=== PATIENT | female | born 1955 | race Caucasian/White ===

== ENCOUNTER 2016-11-15 06:40 | Inpatient (IN) | payer BC ==
[2016-11-12 09:25] LABS: BILIRUBIN,URINE NEGATIVE (NEGATIVE); BLOOD, URINE NEGATIVE (NEGATIVE); CLARITY/URINE CLEAR (CLEAR); COLOR,URINE YELLOW (YELLOW); GLUCOSE,URINE NEGATIVE (NEGATIVE); KETONES,URINE NEGATIVE (NEGATIVE); LEUKOCYTE ESTERASE ,URINE NEGATIVE (NEGATIVE); NITRITE, URINE NEGATIVE (NEGATIVE); PROTEIN URINE NEGATIVE (NEGATIVE); UROBILINOGEN,URINE 0.2 (0.2-1.0)
[2016-11-12 09:32] LABS: CALCIUM 9.6 mg/dL (8.4-11.0); CREATININE 0.82 mg/dL (0.55-1.30); POTASSIUM 4.2 mmol/L (3.5-5.1)
[2016-11-12 09:35] LABS: PROTHROMBIN TIME 10.4 SECS (9.5-12.5)
[2016-11-12 09:37] LABS: BASOPHILS # (AUTO) 0.1 K/uL (0.0-0.2); BASOPHILS % (AUTO) 1.1 % (0.0-2.0); EOSINOPHILS # (AUTO) 0.1 K/uL (0.0-0.4); EOSINOPHILS % (AUTO) 1.1 % (0.0-4.0); HEMATOCRIT 44.5 % (36-48); HEMOGLOBIN 15.1 g/dL (12.0-16.0); LYMPHOCYTES # (AUTO) 1.6 K/uL (1.0-5.5); LYMPHOCYTES % (AUTO) 32.6 % (20.5-51.5); MEAN CORPUSCULAR HEMOGLOBIN 30 pg (27-31); MEAN CORPUSCULAR HGB CONC 34 % (32-36); MEAN CORPUSCULAR VOLUME 89 fL (79.0-98.0); MONOCYTES # (AUTO) 0.3 K/uL (0.0-1.0); MONOCYTES % (AUTO) 6.6 % (1.7-9.3); NEUTROPHILS # (AUTO) 2.8 K/uL (1.8-7.7); NEUTROPHILS % (AUTO) 58.6 % (40.0-70.0); PLATELET COUNT (AUTO) 258 K/uL (130-430); RED CELL DISTRIBUTION WIDTH 12.1 % (9.0-15.0); WHITE BLOOD COUNT (AUTO) 4.9 K/uL (4.8-10.8)
[~2016-11-15] VITALS: Ht 162.6 cm; Wt 103.4 kg
[~2016-11-15 06:40] MED LIST: AMLO2.5T2 PO; CARB-61 PO; ENTA200T2 PO; RASA1TAB PO; TRIH2TAB3 PO
[2016-11-15] MEDS ORDERED: CEFAZOLIN SOD 2 GM in D5W 50 ML IV ONE (07:00)
[2016-11-15] MEDS ORDERED: POLYMYXIN 500,000/BACIT.10,000 UNITS in NS IRR 1 L IR ONE (07:18)
[2016-11-15] MEDS ORDERED: AMIL5TAB9 PO (07:55)
[2016-11-15] MEDS ORDERED: CARB1TAB12 PO (07:55)
[2016-11-15] MEDS ORDERED: COM200 PO (07:55)
[2016-11-15] MEDS ORDERED: TRIH2TAB3 PO (07:55)
[2016-11-15] MEDS ORDERED: RASA1TAB PO (07:55)
[2016-11-15] MEDS ORDERED: LR 1,000 ML IV SCH (09:02)
[2016-11-15] MEDS ORDERED: HYDROmorphone 2 MG/ML VIAL IVP PRN (09:15)
[2016-11-15] MEDS ORDERED: METOCLOPRAMIDE HCL 10 MG/2 ML VIAL IVP PRN (09:15)
[2016-11-15] MEDS ORDERED: HYDROmorphone 1 MG INJ. 1 MG/ML AMPUL IVP PRN ×2 (09:15)
[2016-11-15] MEDS ORDERED: PROMETHAZINE HCL 25 MG/ML AMP IVP PRN (10:30)
[2016-11-15] MEDS ORDERED: DIPHENHYDRAMINE HCL 25 MG CAPSULE PO PRN (10:30)
[2016-11-15] MEDS ORDERED: ONDANSETRON HCL 4 MG/2 ML VIAL IVP PRN (10:30)
[2016-11-15] MEDS ORDERED: SENNOSIDES 8.6 MG TABLET PO PRN (10:30)
[2016-11-15] MEDS ORDERED: ACETAMINOPHEN 325 MG TABLET PO PRN (10:30)
[2016-11-15] MEDS ORDERED: HYDROmorphone 2 MG/ML VIAL ONE (10:44)
[2016-11-15 12:00] VITALS: BP_SYST 148
[2016-11-15] MEDS ORDERED: NALOXONE HCL 0.4 MG/ML AMP (NARCAN) IVP PRN (12:15)
[2016-11-15] MEDS ORDERED: HYDROMORPHONE PCA 10 mg/50 mL IV PRN (12:15)
--- NOTE | 2016-11-15 12:45 | NUR ---
INITIAL NOTE Patient received, drowsy but easily aroused. Patient oriented x4. VSS. Patient stated 4/10 knee pain. RETAIL ZONE SPECIALIST Diluadid effective for pain management. Educated patient on pain management and relaxation techniques, patient verbalized understanding. Respirations even and unlabored, patient receiving oxygen via NC at this time. hospital monitor in place, rhythm noted. IV site patent and intact. Abdomen soft and non distended. Rebolledo draining to gravity, clear yellow urine noted. Right knee dressing CDI, polar care to right knee, hemovac noted. Bilateral pedal pulses strong and equal. SCD applied to left lower extremity. Plan of care discussed, patient verbalized understanding. No further needs at this time. Will continue to monitor. Safety and fall precautions in place, call light within reach.
[2016-11-15 12:50] VITALS: BP_SYST 141
[2016-11-15] MEDS ORDERED: COMTAN 200 MG TAB PO SCH (13:00)
[2016-11-15] MEDS ORDERED: CARBIDOPA/LEVODOPA 25/100 MG TABLET PO SCH ×2 (13:00)
--- NOTE | 2016-11-15 13:33 | NUR ---
Dr Cruz Order received for a consult for p.o. med management. Call was placed to his office [phone], spoke with Rita. Will follow up as needed.
[2016-11-15] MEDS ORDERED: MIDAZOLAM HCL 5 MG/5 ML VIAL ONE (14:00)
[2016-11-15] MEDS ORDERED: LR 1,000 ML IV.SOLN IV ONE (14:00)
[2016-11-15] MEDS ORDERED: BUPIVACAINE /EPINEPHRINE/PF 0.5% 30 ML VIAL INJ ONE (14:00)
[2016-11-15] MEDS ORDERED: PROPOFOL 200MG/ 20ML VIAL (DIPRIVAN) IV ONE (14:00)
[2016-11-15] MEDS ORDERED: ONDANSETRON HCL 4 MG/2 ML VIAL ONE (14:00)
[2016-11-15] MEDS ORDERED: SEVOFLURANE 15 MIN GAS INH ONE (14:00)
[2016-11-15] MEDS ORDERED: NS 100 ML BAG IV ONE (14:00)
[2016-11-15] MEDS ORDERED: VANCOMYCIN HCL 1000 MG/VIAL IV ONE (14:00)
[2016-11-15] MEDS ORDERED: KETOROLAC TROMETHAMINE 30 MG VIAL ONE (14:00)
[2016-11-15] MEDS ORDERED: fentaNYL CITRATE 250 MCG/5 ML AMP ONE (14:00)
[2016-11-15] MEDS ORDERED: LIDOCAINE PF 2%, 200 MG/10 ML AMPUL.LUER (EPIDURAL) INJ ONE (14:00)
[2016-11-15] MEDS ORDERED: TRANEXAMIC ACID 1,000 MG/10 ML VIAL IV ONE (14:00)
[2016-11-15] MEDS ORDERED: ROCURONIUM BROMIDE 10 MG/ML (ZEMURON) ONE (14:00)
[2016-11-15] MEDS ORDERED: fentaNYL CITRATE/PF 100 MCG/2 ML AMP ONE (14:00)
[2016-11-15] MEDS: CEFAZOLIN 1 GM IVPB PREMIX 50 ML IV SCH ×2 (14:16→22:15)
--- NOTE | 2016-11-15 14:20 | NUR ---
ROUNDS Patient alert awake and oriented x4. VSS. Patient stated 2/10 pain, TERRA COTTA ROOFER HELPER effective for pain management at this time. Denies nausea and vomiting at this time. CPM machine in place per PT. Polar care in place. No further needs. Family at bedside. Educated family and patient on IS, patient verbalized understanding and returned demonstration. No further needs. Will continue to monitor. Call light within reach, safety and fall precautions in place.
--- NOTE | 2016-11-15 16:26 | NUR ---
DISCHARGE PLANNING DC planning order for [facility]. Faxed referral to [phone] [phone] [phone]. will follow up.
--- NOTE | 2016-11-15 16:29 | NUR ---
ROUNDS Patient sleeping at this time, chest rise noted. CPM machine in place. No acute distress noted. Will continue to monitor. Safety and fall precautions in place. Call light within reach.
[2016-11-15] MEDS: ENTACAPONE 200 MG PO SCH ×2 (17:35→20:44)
[2016-11-15] MEDS: LEVODOPA PO SCH ×2 (17:36→20:44)
[2016-11-15] MEDS: CARBIDOPA PO SCH ×2 (17:36→20:44)
[2016-11-15 17:49] VITALS: BP_SYST 132
--- NOTE | 2016-11-15 18:02 | NUR ---
CLOSING NOTE Patient sitting up in bed, tolerating dinner well. Denies nausea and vomiting at this time. Patient states 4/10 pain in right knee. Educated on LEAD ADVISOR use, patient verbalized understanding. IV site patent and intact. Respirations even and unlabored. Right knee dressing CDI. Hemovac to right knee, red drainage noted, 150 ml output. Pedal pulses bilaterally strong and equal. CPM machine in place per physical therapy. IS at bedside. No further needs at this time. All needs met throughout shift, safety and fall precautions in place, call light within reach, at bedside. Will endorse to next shift.
[2016-11-15] MEDS ORDERED: RIVAROXABAN 10 MG TABLET PO ONE (18:30)
[2016-11-15 18:56] VITALS: BP_SYST 132
--- NOTE | 2016-11-15 19:45 | NUR ---
Initial Notes Patient alert and oriented, able to make needs known. Patient denies pain at this time, RETAIL OFFICE ASSOCIATE Dilaudid in place, settings verified. No SOB noted. Denies nausea/vomiting at this time. IV site patent, flushes well. Surgical site CDI. CPM on, will removed around 2230 tonight. Rebolledo catheter in place, output noted. Goal of pain management, ortho stability and safety this shift. Call light within reach. Will continue to monitor.
[2016-11-15 20:38] VITALS: BP_SYST 139
[2016-11-15] MEDS ORDERED: TRIHEXYPHENIDYL HCL 2 MG TABLET (ARTANE) PO SCH ×2 (21:00)
--- NOTE | 2016-11-15 22:25 | NUR ---
Notes Patient sleeping at this time. Denies pain. No SOB noted. IV site patent, flushes well. CPM removed, pt tolerated well. IV antibiotic infusing at this time. Call light within reach. Will continue to monitor.
[2016-11-16] VITALS: BP_SYST 138
--- NOTE | 2016-11-16 00:15 | NUR ---
Notes Patient sleeping at this time. No s/s of pain noted. No SOB noted. Afebrile. IV site patent, flushes well. Patient repositioned in bed. Call light within reach. Will continue to monitor.
--- NOTE | 2016-11-16 02:33 | NUR ---
Notes Patient sleeping at this time. No s/s of pain noted. No SOB noted. IV site patent, flushes well. Call light within reach. Will continue to monitor.
[2016-11-16 04:49] VITALS: BP_SYST 135
[2016-11-16] MEDS: CEFAZOLIN 1 GM IVPB PREMIX 50 ML IV SCH (06:10)
--- NOTE | 2016-11-16 06:22 | NUR ---
Closing Notes Patient denies pain at this time. No SOB noted. Denies nausea/vomiting at this time. IV site patent, flushes well. Surgical site CDI. Goal of pain management, ortho stability and safety met. Call light within reach. Will continue to monitor.
[2016-11-16 07:07] LABS: BASOPHILS % (AUTO) 0.3 % (0.0-2.0); EOSINOPHILS % (AUTO) 0.3 % (0.0-4.0); HEMATOCRIT 33.1 % (36-48); HEMOGLOBIN 11.9 g/dL (12.0-16.0); LYMPHOCYTES # (AUTO) 0.8 K/uL (1.0-5.5); LYMPHOCYTES % (AUTO) 13.7 % (20.5-51.5); MEAN CORPUSCULAR HEMOGLOBIN 32 pg (27-31); MEAN CORPUSCULAR HGB CONC 36 % (32-36); MEAN CORPUSCULAR VOLUME 89 fL (79.0-98.0); MONOCYTES # (AUTO) 0.6 K/uL (0.0-1.0); MONOCYTES % (AUTO) 9.6 % (1.7-9.3); NEUTROPHILS # (AUTO) 4.3 K/uL (1.8-7.7); NEUTROPHILS % (AUTO) 76.1 % (40.0-70.0); PLATELET COUNT (AUTO) 175 K/uL (130-430); RED BLOOD CELL COUNT(AUTO) 3.74 MIL/uL (4.2-6.2); RED CELL DISTRIBUTION WIDTH 12.5 % (9.0-15.0); WHITE BLOOD COUNT (AUTO) 5.8 K/uL (4.8-10.8)
[2016-11-16 07:27] LABS: CALCIUM 8.4 mg/dL (8.4-11.0); CREATININE 0.85 mg/dL (0.55-1.30); POTASSIUM 3.9 mmol/L (3.5-5.1)
--- NOTE | 2016-11-16 07:54 | NUR ---
AM ROUNDS Patient received, sleeping but easily aroused oriented x4. VSS. Patient denied pain at this time. POULTRY VETERINARIAN Diluadid effective for pain management. Educated patient on pain management and relaxation techniques, patient verbalized understanding. Respirations even and unlabored. monitoring engineer in place, rhythm noted. IV site patent and intact. Abdomen soft and non distended. Rebolledo draining to gravity, clear yellow urine noted. Right knee dressing CDI, polar care to right knee, hemovac noted. Bilateral pedal pulses strong and equal. SCD applied to left lower extremity. Plan of care discussed, patient verbalized understanding. IS at bedside, patient verbalized understanding and returned demonstration. No further needs at this time. Will continue to monitor. Safety and fall precautions in place, call light within reach.
--- NOTE | 2016-11-16 07:58 | NUR ---
Dr. Sanchez at bedside.
[2016-11-16 08:02] VITALS: BP_SYST 144
[2016-11-16] MEDS: RASAGILINE MESYLATE 1 MG PO SCH (08:16)
[2016-11-16] MEDS: CARBIDOPA PO SCH ×4 (08:17→20:34)
[2016-11-16] MEDS: LEVODOPA PO SCH ×4 (08:17→20:34)
[2016-11-16] MEDS: TRIHEXYPHENIDYL 2 MG PO SCH (08:18)
[2016-11-16] MEDS: ENTACAPONE 200 MG PO SCH ×4 (08:18→20:35)
--- NOTE | 2016-11-16 08:41 | NUR ---
Nutrition Update Richie Scale 18 noted. Pt admitted for unilateral primary osteoarthritis, R knee. Diet: regular BMI: 39.1 kg/m2 RD to follow per nutrition care standards.
[2016-11-16] MEDS ORDERED: COMTAN 200 MG TAB PO SCH (09:00)
[2016-11-16] MEDS ORDERED: TRIHEXYPHENIDYL HCL 2 MG TABLET (ARTANE) PO SCH (09:00)
[2016-11-16] MEDS: aMILoride HCL 5 MG TABLET PO SCH (09:00)
[2016-11-16] MEDS: amLODIPine BESYLATE 5 MG TABLET PO SCH (09:16)
[2016-11-16] MEDS: RIVAROXABAN 10 MG TABLET PO SCH (09:16)
--- NOTE | 2016-11-16 10:37 | NUR ---
ROUNDS Patient sitting in chair at bedside. Patient denies SOB. Patient stated 7/10 pain level in right knee, re-educated on pain management and relaxation techniques, patient verbalized understanding. Will reassess. IS at bedside, encouraged usage, patient returned demonstration. No further needs. at bedside. Will continue to monitor.
[2016-11-16 12:00] VITALS: BP_SYST 125
--- NOTE | 2016-11-16 12:17 | NUR ---
ROUNDS Patient returned to bed with assistance from PT. CPM machine in place. Patient states 3/10 pain, READING EFFICIENCY COURSE DIRECTOR effective for pain management. No further needs at this time. Safety and fall precautions in place. Call light within reach, will continue to monitor.
--- NOTE | 2016-11-16 12:39 | NUR ---
DISCHARGE PLANNING Called [facility] spoke with Radha who stated micha Medina will come to evaluate patient today. Addendum: 11/16/16 at 1416 by Alina TEJADA Carol evaluated patient today, patient accepted and will work on obtaining insurance auth for patient discharge. Carol will keep NMP updated. NMP will follow up.
--- NOTE | 2016-11-16 14:18 | NUR ---
ROUNDS Patient resting in bed at this time. CPM machine in place. Patient denies pain at this time. NP effective for pain management. IS at bedside. No further needs. Will continue to monitor. Safety and fall precautions in place, call light within reach.
--- NOTE | 2016-11-16 15:14 | NUR ---
PHYSICAL THERAPY CO-SIGN The Physical Therapy Progress Notes documented by Plastering Supervisor have been reviewed. I CONCUR W/HELMET COVERER NOTE; CONT PER TX PLAN Reviewed/Co-Signed by: Astrid Luke PT Documentation Done by: KENNEY YEPEZ HELMET COVERER Addendum: 11/16/16 at 1515 by Astrid Luke PT Amended: Links added.
[2016-11-16 16:00] VITALS: BP_SYST 138
--- NOTE | 2016-11-16 16:28 | NUR ---
ROUNDS Patient sleeping at this time, chest rise noted. No acute distress. Will continue to monitor.
--- NOTE | 2016-11-16 17:33 | NUR ---
TEMP IS 99.9 FOR 1600 V/S PT TEMP IS 99.9. COOLING MEASURE WAS PROVIDED. MONIQUE SAMPSON WAS NOTIFIED AND AWARE.
--- NOTE | 2016-11-16 18:29 | NUR ---
CLOSING NOTE Patient resting in bed at this time. States 2/10 pain level. CERTIFIED HEARING INSTRUMENT DISPENSER Diluadid syringe changed and verified with second RN. Respirations even and unlabored. cafeteria monitor in place, rhythm noted. IV site patent and intact. IS at bedside, patient using as directed. No further needs at this time. All needs met throughout shift. Safety and fall precautions in place, call light within reach, will endorse to next shift.
--- NOTE | 2016-11-16 19:29 | NUR ---
Initial PM Note Pt was received lying in bed fully AAO x4. No acute distress noted. Rt knee dressing is clean, dry and intact with neurovascular checks to BLE WNL. OFFLINE EDITOR Dilaudid is in place and controlling pt's pain. IV site in Lt hand is without any signs of infiltration. Pt was instructed to use IS 10X Q1hr WA and pt verbalized understanding. Pt is able to use IS up to 2000ml volume. Fall and safety precautions are in place. Pt was instructed to call for assistance as needed and pt verbalized understanding. Bed is in the lowest and locked positions. Call light is with pt. Will continue to monitor pt.
[2016-11-16 19:30] VITALS: BP_SYST 127
--- NOTE | 2016-11-16 21:30 | NUR ---
Rounds Pt is resting quietly in bed. No c/o pain or discomfort. Call light is with pt.
--- NOTE | 2016-11-16 22:45 | NUR ---
CPM Off CPM machine removed from Rt knee per pt's request and Rt lower leg was elevated on a pillow.
--- NOTE | 2016-11-16 23:30 | NUR ---
Rounds Pt is sleeping comfortably in bed. Call light is with pt.
[2016-11-17 00:09] VITALS: BP_SYST 141
--- NOTE | 2016-11-17 01:00 | NUR ---
Rounds Pt is sleeping comfortably in bed. No resp distress noted. Call light is with pt.
[2016-11-17 04:00] VITALS: BP_SYST 147
[2016-11-17 06:28] LABS: CALCIUM 8.5 mg/dL (8.4-11.0); CREATININE 0.64 mg/dL (0.55-1.30); POTASSIUM 3.9 mmol/L (3.5-5.1)
--- NOTE | 2016-11-17 06:30 | NUR ---
Closing Note Pt is resting comfortably in bed. All pt's needs were attended to. Will endorse to day shift nurse.
[2016-11-17] MEDS: ENTACAPONE 200 MG PO SCH ×4 (06:32→20:33)
[2016-11-17] MEDS: LEVODOPA PO SCH ×4 (06:33→20:32)
[2016-11-17] MEDS: RASAGILINE MESYLATE 1 MG PO SCH (06:33)
[2016-11-17] MEDS: CARBIDOPA PO SCH ×4 (06:33→20:32)
[2016-11-17] MEDS: TRIHEXYPHENIDYL 2 MG PO SCH (06:34)
--- NOTE | 2016-11-17 06:41 | NUR ---
Nausea/Vomiting Zofran 4mg given IV for severe nausea and vomiting with good effect.
[2016-11-17 06:57] LABS: BASOPHILS % (AUTO) 0.7 % (0.0-2.0); EOSINOPHILS % (AUTO) 0.7 % (0.0-4.0); HEMATOCRIT 31.5 % (36-48); HEMOGLOBIN 10.9 g/dL (12.0-16.0); LYMPHOCYTES # (AUTO) 0.9 K/uL (1.0-5.5); LYMPHOCYTES % (AUTO) 14.7 % (20.5-51.5); MEAN CORPUSCULAR HEMOGLOBIN 31 pg (27-31); MEAN CORPUSCULAR HGB CONC 35 % (32-36); MEAN CORPUSCULAR VOLUME 89 fL (79.0-98.0); MONOCYTES # (AUTO) 0.6 K/uL (0.0-1.0); MONOCYTES % (AUTO) 10.1 % (1.7-9.3); NEUTROPHILS # (AUTO) 4.8 K/uL (1.8-7.7); NEUTROPHILS % (AUTO) 73.8 % (40.0-70.0); PLATELET COUNT (AUTO) 157 K/uL (130-430); RED BLOOD CELL COUNT(AUTO) 3.52 MIL/uL (4.2-6.2); RED CELL DISTRIBUTION WIDTH 12.1 % (9.0-15.0); WHITE BLOOD COUNT (AUTO) 6.3 K/uL (4.8-10.8)
--- NOTE | 2016-11-17 07:30 | NUR ---
RN OPENING NOTES PT IN BED RESTING AND STATED SHE IS COMFORTABLE. A/O X 4, VS STABLE. PAIN 4/10 MANAGED ON CONTRACT LEAD. PT LEFT KNEE IS STRAIGHT, BED IN LOWEST POSITION, AND CALL LIGHT WITHIN REACH
[2016-11-17 07:50] VITALS: BP_SYST 139
--- NOTE | 2016-11-17 08:30 | NUR ---
CONSULT Dr. engel is asking to follow up consult. Per pt. he was seen by Dr. Cruz yesterday 11/16/16.
--- NOTE | 2016-11-17 08:40 | NUR ---
DARIO COLON FOLLMARK REMOVED PER DR JAMES
--- NOTE | 2016-11-17 08:40 | NUR ---
DC BEARING INSPECTOR DISCONTINUED BEARING INSPECTOR PER DR ORDER. WASTED 15ML DILAUDED
--- NOTE | 2016-11-17 08:44 | NUR ---
Discharge Planning Called and left message for YOVANI Bronson, , requesting assistance with DC planning on this patient. Addendum: 11/17/16 at 0849 by Alina Saez DP Received call from Carol at [facility] faxed requested currently PT notes/Labs/Medication list [phone]. Carol stated she has been in contact with insurance and auth still pending. Addendum: 11/17/16 at 1300 by Alina Saez DP Spoke with Carol at [facility] currently pending insurance decision. Carol will follow up and return DCP call with update. DCP will continue to follow up.
[2016-11-17] MEDS: amLODIPine BESYLATE 5 MG TABLET PO SCH (08:51)
[2016-11-17] MEDS: aMILoride HCL 5 MG TABLET PO SCH (09:00)
--- NOTE | 2016-11-17 10:00 | NUR ---
RN NOTES PT IN BED, PHYSICAL THERAPY AT BEDSIDE
[2016-11-17] MEDS: RIVAROXABAN 10 MG TABLET PO SCH (11:22)
[2016-11-17] MEDS: HYDROcodone/ACETAMIN 7.5-325 MG TAB PO PRN (11:25)
[2016-11-17 12:00] VITALS: BP_SYST 136
--- NOTE | 2016-11-17 12:05 | NUR ---
RN ROUNDS PT FAMILY() AT BEDSIDE. PATIENT STATED SHE IS COMFORTABLE ASIDE FROM A MILD HEADACHE AND IS ABOUT TO BEGIN EATING LUNCH. BED IN LOWEST POSITION AND CALL LIGHT WITHIN REACH
[2016-11-17] MEDS ORDERED: CHOLECALCIFEROL (VITAMIN D-3) 400 UNIT TABLET PO ONE (14:15)
--- NOTE | 2016-11-17 14:27 | NUR ---
RN ROUNDS PT IS SLEEPING IN BED. CPM IN PLACE, BED IN LOWEST POSITION, BED ALARM IS SET, AND CALL LIGHT WITHIN REACH.
--- NOTE | 2016-11-17 15:28 | NUR ---
PHYSICAL THERAPY CO-SIGN The Physical Therapy Progress Notes documented by Lidder have been reviewed. I CONCUR W/BAG FILLER MACHINE OPERATOR NOTE; CONT PER TX PLAN Reviewed/Co-Signed by: Astrid Luke PT Documentation Done by: LICHA EARLY BAG FILLER MACHINE OPERATOR Addendum: 11/17/16 at 1529 by Astrid Luke PT Amended: Links added.
--- NOTE | 2016-11-17 15:56 | NUR ---
DC planning: Per katelyn Pringle, she received call from Nataliya at indicating case was sent to their physician advisor to review for authorization for [facility]. I called Dr. Sanchez's office and relayed this information to Rita-she will update Dr. Sanchez. MONIQUE
[2016-11-17 16:36] VITALS: BP_SYST 125
--- NOTE | 2016-11-17 16:54 | NUR ---
RN ROUNDS PT SLEEPING IN BED, FAMILY AT BEDSIDE. BED IN LOWEST POSITION, BED ALARM ARMED AND CALL LIGHT WITHIN REACH
[2016-11-17] MEDS: CHOLECALCIFEROL (VITAMIN D-3) 400 UNIT TABLET PO SCH (17:10)
[2016-11-17] MEDS: HYDROmorphone 1 MG INJ. 1 MG/ML AMPUL IVP PRN (17:50)
--- NOTE | 2016-11-17 18:48 | NUR ---
RN CLOSING NOTE PT RESTING IN BED, TALKING WITH HER WHO IS AT BEDSIDE. VS STABLE AND PT STATES SHE IS NOT IN PAIN, BUT SHE IS FEELING ANXIOUS AND SAID SHE HAD BEEN CRYING FOR NO KNOWN REASON. BED IN LOWEST POSITION, BED ALARM SET AND CALL LIGHT WITHIN REACH
--- NOTE | 2016-11-17 20:14 | NUR ---
OPENING NOTE Pt. and bedside report received from day shift nurse. Pt. is resting quietly in bed with no s/s of acute distress. Safety measures in place. Educated pt. on how to use call light for needs. Encouraged pt. to use incentive spirometer for breathing exercises; pt. able to inspire up to 1500 at this time; RT also at bedside. Will continue to monitor.
[2016-11-17 20:17] VITALS: BP_SYST 132
--- NOTE | 2016-11-17 22:51 | NUR ---
Rounds: Resting quietly in bed. No s/s of distress at this time. Patient denies any pain, discomfort, or needs at this time. Neuro checks done. Encouraged patient to use IS for breathing exercises. Encouraged patient to use call light for any needs. Will continue to monitor.
[2016-11-18 00:08] VITALS: BP_SYST 131
[2016-11-18] MEDS: HYDROcodone/ACETAMIN 7.5-325 MG TAB PO PRN ×3 (02:10→15:40)
--- NOTE | 2016-11-18 02:25 | NUR ---
PAIN Pt. c/o "02/05" pain to back. Pt. medicated with [place] PO as ordered PRN for moderate pain. Educated pt. regarding medication and s/e. Pt. verbalized understanding. Safety measures in place. Bed alarm on. Will continue to monitor.
[2016-11-18 04:00] VITALS: BP_SYST 137
--- NOTE | 2016-11-18 04:47 | NUR ---
Rounds: Patient assisted up to void on BSC. Tolerated ambulation well. Voiding without difficulty. Assisted back to bed. Patient requesting ice packs for comfort measure. Ice packs placed bilateral axilla, behind neck and mid chest area. Patient denies any other needs at this time. Safety measures in place. Will continue to monitor. Call light within reach.
[2016-11-18] MEDS: LEVODOPA PO SCH ×2 (06:21→11:50)
[2016-11-18] MEDS: ENTACAPONE 200 MG PO SCH ×2 (06:21→11:50)
[2016-11-18] MEDS: CARBIDOPA PO SCH ×2 (06:21→11:50)
[2016-11-18] MEDS: TRIHEXYPHENIDYL 2 MG PO SCH (06:23)
[2016-11-18] MEDS: RASAGILINE MESYLATE 1 MG PO SCH (06:23)
[2016-11-18 06:29] LABS: CALCIUM 8.6 mg/dL (8.4-11.0); CREATININE 0.78 mg/dL (0.55-1.30); POTASSIUM 3.5 mmol/L (3.5-5.1)
--- NOTE | 2016-11-18 06:45 | NUR ---
DUE MEDS Late entry due to pt. care. Due meds administered as ordered. No s/s of acute distress. Denies any pain or discomfort at this time. Call light placed to right hand. Will continue to monitor.
[2016-11-18 07:20] LABS: BASOPHILS % (AUTO) 0.7 % (0.0-2.0); EOSINOPHILS # (AUTO) 0.1 K/uL (0.0-0.4); EOSINOPHILS % (AUTO) 1.1 % (0.0-4.0); HEMATOCRIT 30.9 % (36-48); HEMOGLOBIN 10.5 g/dL (12.0-16.0); LYMPHOCYTES % (AUTO) 18.5 % (20.5-51.5); MEAN CORPUSCULAR HEMOGLOBIN 31 pg (27-31); MEAN CORPUSCULAR HGB CONC 34 % (32-36); MEAN CORPUSCULAR VOLUME 90 fL (79.0-98.0); MONOCYTES # (AUTO) 0.4 K/uL (0.0-1.0); MONOCYTES % (AUTO) 7.9 % (1.7-9.3); NEUTROPHILS # (AUTO) 3.8 K/uL (1.8-7.7); NEUTROPHILS % (AUTO) 71.8 % (40.0-70.0); PLATELET COUNT (AUTO) 165 K/uL (130-430); RED BLOOD CELL COUNT(AUTO) 3.44 MIL/uL (4.2-6.2); RED CELL DISTRIBUTION WIDTH 12.1 % (9.0-15.0); WHITE BLOOD COUNT (AUTO) 5.3 K/uL (4.8-10.8)
[2016-11-18 07:41] VITALS: BP_SYST 119
--- NOTE | 2016-11-18 08:00 | NUR ---
OPENING NOTE: PATIENT IS RESTING COMFORTABLY IN BED. NO S/S OF DISTRESS OR SOB. PATIENT IS ALERT AND ORIENTED, ABLE TO EXPRESS NEEDS, AND ASK FOR ASSISTANCE. VITAL SIGNS WNL, ASSESSMENT COMPLETE. IV IS PATENT. [facility] IS ON. CALL LIGHT IN REACH, BED IN LOWEST POSITION, AND WILL CONTINUE TO MONITOR.
--- NOTE | 2016-11-18 08:11 | NUR ---
CLOSING NOTES All needs met throughout shift. Bedside report given. Pt. is stable with no s/s of acute distress. Safety measures in place. Endorsed care to day shift nurse.
[2016-11-18] MEDS: CHOLECALCIFEROL (VITAMIN D-3) 400 UNIT TABLET PO SCH (08:41)
[2016-11-18] MEDS: aMILoride HCL 5 MG TABLET PO SCH (08:41)
[2016-11-18] MEDS: amLODIPine BESYLATE 5 MG TABLET PO SCH (08:41)
[2016-11-18] MEDS: RIVAROXABAN 10 MG TABLET PO SCH (09:46)
--- NOTE | 2016-11-18 09:51 | NUR ---
DISCHARGE PLANNING Called [facility] spoke with Carol in admitting who will follow up with [place] on decision. Carol made aware Dr Sanchez available today at 11am to do peer to peer if needed. Will continue to follow up. Addendum: 11/18/16 at 1201 by Alina Saez DP Spoke with Carol at [facility] auth received patient assigned to room 1105A RN to report [phone] Ext:[phone] bed available after 3pm. MONIQUE Khan Made aware. updated patient/family. YOVANI Made aware. Called contracted ambulance [facility] [phone] spoke with Ro arranged S transport pear picker 3pm. Placed transportation packet in nurse station.
--- NOTE | 2016-11-18 10:00 | NUR ---
NOTE: PATIENT IS RESTING COMFORTABLY IN BED. NO S/S OF DISTRESS OR SOB. PATIENT IS ALERT AND ORIENTED, ABLE TO EXPRESS NEEDS, AND ASK FOR ASSISTANCE. CALL LIGHT IN REACH, BED IN LOWEST POSITION, AND WILL CONTINUE TO MONITOR.
[2016-11-18] MEDS: HYDROmorphone 1 MG INJ. 1 MG/ML AMPUL IVP PRN (11:56)
[2016-11-18 12:00] VITALS: BP_SYST 116
--- NOTE | 2016-11-18 12:00 | NUR ---
Note: Patient is resting comfortably in bed. no s/s of distress or sob. patient is alert and oriented, able to express needs and ask for assistance. call light in reach, bed in lowest position, and will continue to monitor.
[2016-11-18 13:01] VITALS: BP_SYST 116
--- NOTE | 2016-11-18 14:00 | NUR ---
Note: patient is resting comfortably in bed. no s/s of distress or sob. Patient is alert and oriented, able to express needs and ask for assistance. Call light in reach, bed in lowest position, and will continue to monitor.
--- NOTE | 2016-11-18 15:27 | NUR ---
PHYSICAL THERAPY CO-SIGN The Physical Therapy Progress Notes documented by Metallographic Technician have been reviewed. I CONCUR W/PRODUCTION MECHANIC TIN CANS NOTE; Pt WILL CONT TO BENEFIT W/PT Reviewed/Co-Signed by: Astrid Luke PT Documentation Done by: LICHA EARLY PRODUCTION MECHANIC TIN CANS Addendum: 11/18/16 at 1528 by Astrid Luke PT Amended: Links added.
[2016-11-18 16:00] VITALS: BP_SYST 138
--- NOTE | 2016-11-18 16:35 | NUR ---
PT TRANSFERRED Report given to Nila at [facility]. Transfer packet with Transfer Orders and Medication Reconciliation form given to EMT with report. Exitcare provided. [facility] ID band removed, replaced with ID band with pt's name and . All belongings sent with patient. Patient left floor via gurney escorted by EMT in no distress.
== END 2016-11-18 16:35 | DRG 470 ==
LOC: SMU 06:40 → STU 12:01 → SMU 11-17 19:26
PROVIDERS: ADMIT Orthopaedic Surgery; ATTEND Orthopaedic Surgery
PROC: 3E0T3CZ (ICD-10-PCS; 2016-11-15)
PROC: 0SRC0J9 Replacement of Right Knee Joint with Synthetic Substitute, Cemented, Open Approach (ICD-10-PCS; principal; 2016-11-15 08:30)
DX: M17.11 Unilateral primary osteoarthritis, right knee (principal); G20 Parkinson's disease; I10 Essential (primary) hypertension; E66.01 Morbid (severe) obesity due to excess calories; Z96.652 Presence of left artificial knee joint; Z68.39 Body mass index [BMI] 39.0-39.9, adult; Z98.890 Other specified postprocedural states
CPT/HCPCS: 36415; 71020-TC; 80048; 81003; 85025; 85610-TC; 85730-TC; 87081; 88305; 88311; 94010; 97110-GP; 97116-GP; 97530-GP; C1713; C1776; J0690; J1170; J1885; J2001; J2250; J2405; J2704; J3010; J3370; J3490; J7050; J7060; J7120